=== PATIENT | female | born 1940 | race Caucasian/White ===

== ENCOUNTER 2020-08-27 21:26 | Inpatient (IN) | payer MEDICARE, OTHER ==
--- NOTE | 2020-08-27 22:18 | RAD ---
Exam: Chest one view HISTORY:Preoperative exam. Trauma. Comparison: 06/18/2016 FINDINGS: Cardiac silhouette:Cardiomegaly. Aorta: Atherosclerosis Pulmonary vessels: Normal Costophrenic angles: Clear LUNGS: Stable elevation the right hemidiaphragm likely due to diaphragmatic process. Chronic lung par enchymal changes without mass or consolidation. Pneumothorax: None Osseous abnormalities: None IMPRESSION: 1. Cardiomegaly. No radiographic evidence of congestive heart failure. 2. Atherosclerosis.
[2020-08-27 22:35] LABS: #Lymphocytes 1.3 thou/uL (1.20-3.40); #Monocytes 0.5 thou/uL (0.11-0.59); #Neutrophils 7.3 thou/uL (1.40-6.50); %Eosinophils 0.1 % (0.0-10.0); %Lymphocytes 13.9 % (21.0-51.0); %Monocytes 5.9 % (0.0-10.0); %Neutrophils 80.1 % (42.0-75.0); Hemoglobin 11.5 g/dL (12.0-16.0); Mean Corpuscular HGB CONC 30.9 g/dL (32.0-36.0); Mean Corpuscular Hemoglobin 27.9 pg (27.0-31.0); Mean Corpuscular Volume 90.3 fL (78.0-98.0); Mean Platelet Volume 8.4 fL (7.4-10.4); Platelet Count 205 thou/uL (130-400); RBC Distribution Width 14.2 % (11.5-14.5); Red Blood Cell (RBC) Count 4.14 mill/uL (4.20-5.40); White Blood Cell (WBC) Count 9.1 thou/uL (4.8-10.8)
[2020-08-27 22:44] LABS: INR-International Normal Ratio 1.4; PTT 42.7 sec (22.9-36.1); Prothrombin Time 16.9 sec (12.0-14.7)
[2020-08-27] MEDS ORDERED: Ondansetron PF 4 MG/2 ML Vial IVP PRN (22:53)
[2020-08-27] MEDS ORDERED: Dextrose 5% in Water 1,000 ML IV PRN (22:53)
[2020-08-27] MEDS ORDERED: Morphine 2 MG/ML VIAL SLOW IVP PRN (22:53)
[2020-08-27] MEDS ORDERED: Dextrose 50% Abboject 50 ML SYRINGE SLOW IVP PRN (22:53)
[2020-08-27] MEDS ORDERED: hydrALAZINE 20 MG/ML VIAL SLOW IVP PRN (22:53)
[2020-08-27] MEDS ORDERED: traMADol HCl 50 MG TAB PO PRN (22:56)
[2020-08-27 22:57] LABS: ALT (SGPT) 7 U/L (8-55); AST (SGOT) 22 U/L (5-34); Albumin 2.8 g/dL (3.4-4.8); Alkaline Phosphatase 101 U/L (40-110); Anion Gap 13 mmol/L (10-20); BUN (Urea Nitrogen) 25 mg/dL (9.8-20.1); Bilirubin, Total 0.6 mg/dL (0.2-1.2); CK (CPK) 122 U/L (29-168); Calc. Creatinine Clearance 0 mL/min (70-130); Calcium 8.5 mg/dL (7.8-10.44); Carbon Dioxide 25 mmol/L (23-31); Chloride 96 mmol/L (98-107); Globulin 4.5 g/dL (2.4-3.5); Glucose 138 mg/dL (83-110); Magnesium 1.6 mg/dL (1.6-2.6); Phosphorus 3.7 mg/dL (2.3-4.7); Potassium 3.7 mmol/L (3.5-5.1); Protein, Total 7.3 g/dL (6.0-8.3); Sodium 130 mmol/L (136-145)
[2020-08-27] MEDS ORDERED: Morphine 4 MG/ML VIAL ONE (23:00)
[2020-08-27 23:47] LABS: Bacteria/HPF 4+ HPF (None Seen); Bilirubin Negative (Negative); Blood, Urine 3+ (Negative); Clarity Extra Turbid (Clear); Glucose, Urine (Dipstick) Normal (Negative); Ketone, Urine Negative (Negative); Leukocyte 500 Leu/uL (Negative); Nitrite Negative (Negative); Protein, Urine (Dipstick) 30 mg/dL (Neg-Trace); RBC/HPF 21-50 HPF (0-3); Specific Gravity, Urine 1.017 (1.002-1.036); Squamous Epithelial 21-50 HPF (0-3); Urobilinogen Normal mg/dL (Less than 2); WBC/HPF Greater than 50 HPF (0-3); pH, Urine 5.5 (5.0-9.0)
--- NOTE | 2020-08-27 23:51 | RAD ---
Exam:Right foot 3 views HISTORY: Pain. Trauma. COMPARISON: None FINDINGS: Diffuse bone demineralization. There are erosive changes involving first metatarsal phalang eal joint space, the middle and distal phalanx of the second digit, distal phalanx of the third digit and metatarsal head of the fourth digit. There appear to be chronic changes involving the first and fourth metatarsal phalangeal joint space. Lisfranc alignment appears to be displaced with possible pulmonary lateral divergence. Better interrogation with CT is recommended. There is irregula rity involving the middle phalanx of the third digit. IMPRESSION: 1. Possible disruption of the Lisfranc ligament with homolateral divergence. Underlying fractures can not be excluded. 2. Multilevel erosive changes which may represent osteomyelitis. Consider CT.
--- NOTE | 2020-08-27 23:53 | RAD ---
Exam:Left foot 3 views HISTORY: Pain and trauma. COMPARISON: 12/23/2019 FINDINGS: Progression of degenerative changes throughout the left foot. There are erosive and destruc tive changes involving the first through third metatarsal phalangeal joint space. Lisfranc alignment appears to be maintained. There is diffuse bone demineralization. Extensive atherosclerosis . IMPRESSION: 1. Stable degenerative changes/erosive changes of the left foot. 2. Diffuse bony mineralization. 3. No radiographic evidence of fracture. There is pain or point tenderness, consider further evaluati on with CT.
[2020-08-27] MEDS ORDERED: Sodium Chloride 0.9% 1,000 ML IV SCH (23:59)
[2020-08-27] MEDS ORDERED: Magnesium 2 GM/50 ML 2 GM in Premix Bag 1 BAG IVPB SCH (23:59)
[2020-08-28] MEDS ORDERED: Potassium Phosphate 15 MMOL in Sodium Chloride 0.9% 250 ML 250 ML IVPB SCH (01:00)
--- NOTE | 2020-08-28 01:15 | HP ---
TRAUMA SURGEON: Dr. Carolina. CONSULTING PHYSICIAN: Dr. Dhaliwal. HISTORY OF PRESENT ILLNESS: The patient is an 80-year-old female presented to the emergency department after a mechanical fall at home. The patient reports yesterday evening she was in her garage and got hung up on something while using her walker. She subsequently fell. She did have some left-sided thigh pain. EMS was called to help her into bed. She refused transport at that time. However, today the patient was not able to get up out of bed and ambulate and was having severe pain, so she was brought to the ER at [place]. Upon evaluation, she was found to have a left proximal femur fracture. Trauma was called to evaluate the patient. At the time of my evaluation, the patient complained of left-sided thigh pain. The patient denies syncope, loss of consciousness, and hitting her head. She does take Pradaxa as part of her medications. She denies numbness and tingling in her bilateral upper and lower extremities, neck pain, back pain, nausea, vomiting, diarrhea, cough, chest pain, or shortness of breath. She does report that the toes on her bilateral feet are tender since the fall. REVIEW OF SYSTEMS: All additional 10-point review of systems negative except as indicated above. PAST MEDICAL HISTORY: Hypertension, atrial fibrillation, pulmonary hypertension, GERD, breast cancer, rheumatoid arthritis, hypothyroidism, and urinary incontinence. The patient also reports she has a leaky valve in her heart, but could not tell me which exact valve. She also currently has a flare of shingles. PAST SURGICAL HISTORY: Right lumpectomy, hysterectomy, carpal tunnel surgery x2, appendectomy, and spinal injections. SOCIAL HISTORY: The patient lives at home with her . She has a walker to get around. She denies tobacco, drug, or alcohol use. MEDICATIONS: Include; 1. Benazepril. 2. Pradaxa. 3. Hydralazine. 4. Fluticasone. 5. Prilosec. 6. Hydrochlorothiazide. 7. Euthyrox. ALLERGIES: NO KNOWN DRUG ALLERGIES. PHYSICAL EXAMINATION: VITAL SIGNS: Temperature 97.8, pulse 72, respirations 16, oxygen saturation 100% on room air, and blood pressure 199/95. PRIMARY SURVEY: Airway intact. Adequate breath sounds bilaterally. 2+ pulses in the bilateral radials, femorals, and DPs. GCS 15. Gross motor and sensation intact. No lacerations, bruising, or external bleeding. SECONDARY SURVEY: HEAD: Normocephalic, no signs of trauma. EYES: No signs of trauma. Pupils 3-2, equal, round, and reactive to light bilaterally. ENT: No signs of trauma. C-SPINE: No step-offs or deformities, nontender. C-collar not in place. CHEST: Nontender. No crepitus. No abrasions or ecchymosis noted. Equal chest movement. ABDOMEN: Soft, nontender, and nondistended. The patient has a rash on her right lateral side extending to her back from shingles. PELVIS: Stable to palpation, nontender. No abrasions or ecchymosis noted. RECTAL: Deferred. GENITOURINARY: Deferred. EXTREMITIES: The patient has pain and tenderness over the left thigh. No abrasions or ecchymosis noted. 2+ pulses in bilateral radials, femorals, and DPs. The patient has tenderness to the toes of bilateral feet. BACK/SPINE: No step-offs, deformities, or tenderness to palpation of the thoracic or lumbar spine. No abrasions or ecchymosis noted. The patient has a shingles outbreak that wraps around her back to her right abdomen. NEUROLOGIC: 5/5 strength in bilateral supervisor white sugar, plantar flexion, and dorsiflexion. Gross normal sensation x4 extremities. LABORATORY FINDINGS: White count 9.1, hemoglobin 11.5, hematocrit 37.4, and platelets 205. INR 1.4. Sodium 130, potassium 3.7, chloride 96, bicarb 25, BUN 25, creatinine 1.54, glucose 138, phosphorus 3.7, and magnesium 1.6. Total bilirubin 0.6, AST 22, ALT 7, and alkaline phosphatase 101. UA is contaminated and will be re-sent. X-ray of the left hip demonstrates displaced left proximal femoral fracture. X-ray of the left knee demonstrates no evidence for acute osseous abnormalities. If there is a persistent clinical concern, conservative management and followup imaging are advised. Chest x-ray demonstrates cardiomegaly. No radiographic evidence of congestive heart failure, atherosclerosis. X-ray of the left foot demonstrates stable degenerative changes of the left foot. Diffuse body demineralization. No radiographic evidence of fracture. There is pain or point tenderness. Consider further evaluation with CT. X-ray of the right foot demonstrates possible destruction of the Lisfranc ligament with homolateral divergence underlying fracture cannot be excluded. Multilevel erosion changes which may represent osteomyelitis consider CT. ASSESSMENT: 1. Status post mechanical fall from standing. 2. Left proximal femur fracture. 3. Acute kidney injury. 4. History of hypertension, heart valve insufficiency, atrial fibrillation, pulmonary hypertension, gastroesophageal reflux disease, breast cancer, rheumatoid arthritis, hypothyroidism, incontinence, and recent diagnosis of shingles. PLAN: The patient will be admitted to the Trauma Service. She will go to the regular surgical nursing floor. She has a heart healthy diet and will be n.p.o. at midnight. Orthopedic Surgery has been consulted and they plan to take the patient to the OR tomorrow. We will provide her with both p.o. and IV pain medications. We will also keep in mind to monitor the patient's pain while she has the shingles flare. We will ask the opinion of Orthopedic Surgery to evaluate x-rays of her right foot to determine if further CT imaging is recommended based on all of the findings reported. Postoperatively, the patient will likely need placement in acute rehab facility. This patient was discussed with Dr. Carolina before this dictation. Job ID: [id number]
[2020-08-28] MEDS: Acetaminophen 500 MG TAB PO SCH ×4 (01:20→17:57)
[2020-08-28] MEDS: Cyclobenzaprine 10 MG TAB PO PRN (01:59)
[2020-08-28 02:55] LABS: Bacteria/HPF 4+ HPF (None Seen); Bilirubin Negative (Negative); Blood, Urine 3+ (Negative); Clarity Extra Turbid (Clear); Glucose, Urine (Dipstick) Normal (Negative); Ketone, Urine Negative (Negative); Leukocyte 500 Leu/uL (Negative); Nitrite 2+ (Negative); Protein, Urine (Dipstick) 100 mg/dL (Neg-Trace); RBC/HPF Greater than 50 HPF (0-3); Specific Gravity, Urine 1.023 (1.002-1.036); Urobilinogen Normal mg/dL (Less than 2); WBC/HPF Greater than 50 HPF (0-3); pH, Urine 5.5 (5.0-9.0)
[2020-08-28 03:19] VITALS: BMI 34.0
[2020-08-28 06:29] LABS: Hemoglobin 11.2 g/dL (12.0-16.0); Mean Corpuscular HGB CONC 31.6 g/dL (32.0-36.0); Mean Corpuscular Hemoglobin 28.5 pg (27.0-31.0); Mean Corpuscular Volume 90.3 fL (78.0-98.0); Mean Platelet Volume 8.3 fL (7.4-10.4); Platelet Count 203 thou/uL (130-400); RBC Distribution Width 14.2 % (11.5-14.5); Red Blood Cell (RBC) Count 3.94 mill/uL (4.20-5.40); White Blood Cell (WBC) Count 7.8 thou/uL (4.8-10.8)
[2020-08-28 06:33] LABS: Anion Gap 13 mmol/L (10-20); BUN (Urea Nitrogen) 27 mg/dL (9.8-20.1); Calc. Creatinine Clearance 40 mL/min (70-130); Calcium 8.2 mg/dL (7.8-10.44); Carbon Dioxide 26 mmol/L (23-31); Chloride 96 mmol/L (98-107); Glucose 106 mg/dL (83-110); Magnesium 2.4 mg/dL (1.6-2.6); Phosphorus 3.7 mg/dL (2.3-4.7); Potassium 3.3 mmol/L (3.5-5.1); Sodium 132 mmol/L (136-145)
[2020-08-28] MEDS ORDERED: Potassium Chloride 40 MEQ in Premix Bag 1 BAG IVPB SCH (07:00)
[2020-08-28 07:43] LABS: Band 12 % (5-11); Eosinophils 1 % (0-10); Lymphocytes 17 % (21-51); MDiff Complete? YES; Monocytes 5 % (0-10); Neutrophil 64 % (42-75); Platelet Morphology Comment Appears Adequate; Polychromasia SLIGHT = 2-3 cells (100X) (0-2/hpf); Reactive Lymphocytes 1 % (0-10)
[2020-08-28] MEDS: Famotidine 20 MG TAB PO SCH (09:04)
[2020-08-28] MEDS: Senokot S 8.6-50 MG TAB PO SCH ×2 (09:04→20:53)
[2020-08-28] MEDS: Polyethylene Glycol 3350 17 GM Packet PO SCH ×2 (09:05→09:09)
[2020-08-28] MEDS ORDERED: Dexamethasone 20 MG/5 ML VIAL ONE (09:07)
[2020-08-28] MEDS ORDERED: ePHEDrine 50 MG/ML VIAL ONE (09:07)
[2020-08-28] MEDS ORDERED: Ondansetron PF 4 MG/2 ML Vial ONE ×2 (09:07→14:14)
[2020-08-28] MEDS: Lisinopril 20 MG TAB PO SCH (09:09)
[2020-08-28] MEDS: hydrALAZINE 25 MG TAB PO SCH ×3 (09:09→20:54)
[2020-08-28] MEDS: cefTRIAXone\\ROCEPHIN 1 GM in Sodium Chloride 0.9% 100 ML IVPB SCH (09:09)
--- NOTE | 2020-08-28 09:21 | CON ---
DATE OF CONSULTATION: HISTORY OF PRESENT ILLNESS: We were asked by Trauma to see the patient. The patient was at home yesterday. She was going out to her garage with her 3-wheeled walker. She says her garage was a little bit in disarray and she caught her foot and fell. She states she dragged her right foot under her and that is quite painful and also has some left hip and groin pain. The patient currently is in Crowley's traction and is comfortable. She denies any other injuries except the right foot and left hip. She resides at home near [place] on [address] [place] with her who has some vision and mentation issues, but he is still able to get around quite a bit. She is concerned about him, but the neighbors stated they will take a look at him and check in on to make sure he is okay. Her daughter lives in [place], so if rehab is to be involved, she would like to go somewhere near there. Other than the pain stated above, she denies any numbness and tingling to her bilateral lower extremities but has pain with moving both. PAST MEDICAL HISTORY: High blood pressure, AFib, pulmonary hypertension, GERD, breast cancer, rheumatoid arthritis, hypothyroidism, urinary incontinence, and has some apparent leaky valve in her heart and struggling with shingles currently. PAST SURGICAL HISTORY: Right lumpectomy, hysterectomy, carpal tunnel x2, appendectomy, spinal injections, and she has had some form of right foot fusion pinning in the past for toes overlapping. SOCIAL HISTORY: Lives at home on [address] [place] with her who has multiple health issues also. No alcohol, nicotine, or drug use. CURRENT MEDICATIONS: 1. Benazepril. 2. Pradaxa, last dose on Wednesday morning. 3. Hydralazine. 4. Fluticasone. 5. Prilosec. 6. Hydrochlorothiazide. 7. . ALLERGIES: NONE. FAMILY HISTORY: For this event is noncontributory. REVIEW OF SYSTEMS: Right foot, left hip pain. Otherwise, the patient is comfortable and in no acute distress. No other positive review of systems currently. PHYSICAL EXAMINATION: GENERAL: Well-nourished, well-developed female, very pleasant, currently in no acute distress as long as I do not move her. Speech clear, answering questions appropriately, is alert and oriented x3. HEENT: Scalp atraumatic. Face symmetric. Tongue midline. NECK: Supple. Trachea midline. EXTREMITIES: Upper extremities; equal size, shape, and symmetry. Normal bulk and tone. Movements are equal as are sensation. She does have some various bruising to both arms. Bilateral lower extremities; equal size, shape, symmetry, bulk, and tone. Left lower extremity is in Crowley's traction. Right lower extremity; toes are painful with movement, but have good sensation as does the left lower extremity. She does have some bruising to the dorsal aspect of the foot just inferior to the digits and the digits are all painful with moving. DP and PT pulses are intact. RESPIRATORY: Respirations 16. No acute distress. PELVIS: No pain with rocking. ASSESSMENT: 1. Multiple health issues. 2. Left hip fracture, nondisplaced. 3. Possible Lisfranc disruption with significant rheumatoid arthritis to that foot with lots of joint erosions and degenerative changes. PLAN: I spoke with the patient regarding the hip. We would like to do a dynamic hip screw with derotational screw, and I explained to the patient the procedure and went over the risks and benefits. Her questions and concerns at this current time were answered, and she is amenable to go forth with surgery. As for her right foot, due to her extensive arthritis, I will go over these films with Dr. Dhaliwal. I let the patient know she may need some further imaging studies which she understands. She also states she has a plethora of various orthotic shoes at home, she has worn over the past. Once Trauma allows us to do surgery, we will get her set up and again her last Pradaxa dose was Wednesday. Currently, she is n.p.o. Job ID: [id number]
[2020-08-28 09:35] LABS: SARS-CoV-2 MS2 Positive; SARS-CoV-2 N Gene Negative; SARS-CoV-2 S Gene Negative; SARS-CoV-2 by NAA Not Detected (NotDetected); SARS-CoV-2 orf1ab Negative
[2020-08-28] MEDS: NS 0.9% w/ 20 MEQ KCL 1,000 ML IV SCH ×2 (09:37→23:35)
--- NOTE | 2020-08-28 10:54 | CT ---
EXAM: CT left ankle and foot PROVIDED CLINICAL HISTORY: Pain status post injury COMPARISON: None FINDINGS: There is diffuse regional osteopenia, limiting the sensitivity of CT. There are extensive mid foot de generative changes with subcortical cystlike changes, most conspicuously involving the navicular-cuneiform articulation. There is no evidence for fracture or dislocation. There is noncircu mscribed fluid density within the subcutaneous adipose layer at the lateral aspect of the ankle. Vascular calcifications are seen. No regional joint effusion is evident. IMPRESSION: No definite evidence for fracture.
--- NOTE | 2020-08-28 10:57 | CT ---
EXAM: CT right ankle and foot PROVIDED CLINICAL HISTORY: Pain status post injury COMPARISON: None FINDINGS: There is diffuse regional osteopenia, limiting CT sensitivity for fracture. There is no evidence for fracture. There is no evidence for dislocation. Alignment at the Lisfranc joint appears normal. There is prominent regional vascular calcification. There is no evidence for joint effusion. No mabel rning lytic or blastic osseous lesions are evident. IMPRESSION: No definite evidence for fracture.
[2020-08-28] MEDS: Potassium Chloride 20 MEQ in Premix Bag 1 BAG IVPB SCH ×2 (11:29→12:13)
[2020-08-28] MEDS ORDERED: Iopamidol-370 76% 500 ML 1 ML ONE (13:14)
--- NOTE | 2020-08-28 14:55 | PQF ---
CLINICAL DOCUMENTATION CLARIFICATION FORM: Dear SMOOTH Barclay/WILI DREW PA-C Date: 08-28-20 Please exercise your independent, professional judgment in responding to the clarification form. Clinical indicators are provided on the bottom of this form for your review. Please check appropriate box(es): [ X ] UTI [ ] Contaminated urine specimen without UTI [ ] Other diagnosis [ ] Unable to determine In addition, please specify: Present on Admission (POA): [ X ] Yes [ ] No [ ] Unable to determine For continuity of documentation, please document condition throughout progress notes and discharge summary. Thank You. To be completed by CDI/Coding staff for physician review: CLINICAL INDICATORS - SIGNS / SYMPTOMS / LABS / RESULTS AND LOCATION IN MR: URINE 08-28-20: URINE CLARITY: EXTRA TURBID A URINE PROTEIN: 100 A URINE BLOOD: 3+ URINE NITRATE: 2+ A UR LEUKOCYTE ESTERASE: 500 A URINE WBC: GREATER THAN 50 A URINE BACTERIA: 4+ A RISK FACTORS / RESULTS AND LOCATION IN MR: H&P: 08-28-20: S/P MECH FALL, UNABLE TO GET OUT OF BED, HX OF URINARY INCONTINENCE, HAS A FLARE OF SHINGLES, LIVES AT HOME, USES WALKER TO GET AROUND TREATMENT / RESULTS AND LOCATION IN MR: URINE COLLECTION 08-27-20 AND 08-28-20 MAR: 08-28-20: IVF NS WITH 20 MEQ KCL, ROCEPHIN IV CDS Signature: Yuki Oconnor Phone #: [phone] Date:08-28-20 This is a permanent part of the Medical Record [facility]
--- NOTE | 2020-08-28 15:08 | PQF ---
CLINICAL DOCUMENTATION CLARIFICATION FORM: Dear Dr. HERNAN ZUÑIGA PA-C/WILI DREW PA-C Date / Time: 08-28-20 Please exercise your independent, professional judgment in responding to the clarification form. Clinical indicators are provided on the bottom of this form for your review. Please check appropriate box(es): [ X ] Hyponatremia please specify etiology, if known [ ] Insignificant Lab Values [ ] Other diagnosis [ ] Unable to determine In addition, please specify: Present on Admission (POA): [ X ] Yes [ ] No [ ] Unable to determine For continuity of documentation, please document condition throughout progress notes and discharge summary. Thank You. To be completed by CDI/Coding staff for physician review: CLINICAL INDICATORS - SIGNS / SYMPTOMS / LABS / RESULTS AND LOCATION IN EMR: SODIUM: 08-27-20: 130 08-28-20: 132 RISK FACTORS / RESULTS AND LOCATION IN EMR: H&P 08-27-20: HX HTN, A FIB, PULMONARY HTN, GERD, BREAST CANCER, RA, HYPOTHYROIDISM, URINARY INCONTINENCE, CURRENTLY HAS FLARE OF SHINGLES ; ASSESSMENT: S/P MECH FALL, L PROXIMAL FEMUR FRACTURE, ACUTE KIDNEY FAILURE TREATMENTS / RESULTS AND LOCATION IN EMR: MAR: 08-28-20: NS WITH 20MEQ KCL IVF CDS Signature: Yuki Oconnor Phone #: [phone] Date: 08-28-20 This is a permanent part of the Medical Record [facility]
--- NOTE | 2020-08-28 15:09 | RAD ---
EXAM: XR Hip Lt 2-3 View PROVIDED CLINICAL HISTORY: ORIF COMPARISON: None FINDINGS: Spot fluoroscopic frontal, oblique and lateral views of the left hip demonstrate interval side plate and dynamic hip screw fixation of left proximal femoral fracture. IMPRESSION: As above.
[2020-08-28] MEDS ORDERED: Promethazine HCl 25 MG/ML VIAL SLOW IVP PRN (15:23)
[2020-08-28] MEDS ORDERED: Promethazine HCl 25 MG/ML VIAL IM PRN (15:23)
[2020-08-28] MEDS ORDERED: Ondansetron HCl/PF 4 MG/2 ML Vial IVP PRN (15:23)
--- NOTE | 2020-08-28 16:44 | CT ---
CT head noncontrast HISTORY: Postop. Expressive aphasia. COMPARISON: 09/30/2013. FINDINGS: There is no evidence of acute intracranial hemorrhage or infarct. 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 Additional chronic ischemic small vessel disease throughout the periven tricular white matter of each cerebral hemisphere has progressed somewhat. Diffuse cortical atrophy. There is no mass effect or shift of midline structures. Calcification within the arterial structures of the brain base. Mucous and fluid within the maxillary , sphenoid, and frontal sinuses. Chronic appearing mucosal thickening of the left mastoid air cells. IMPRESSION : Chronic-type findings. No acute intracranial abnormalities are demonstrated. CT arteriogram is pending.
--- NOTE | 2020-08-28 17:04 | CT ---
EXAM: CT angiogram great vessels neck with IV contrast and three-dimensional reconstructions CT angiogram brain with IV contrast and three-dimensional reconstructions PROVIDED CLINICAL HISTORY: Postop expressive aphasia COMPARISON: None FINDINGS: There is a normal three-vessel configuration of the great vessels at the arch. There is conspicuous calcified atherosclerotic plaque involving the terminal aspects of each common c arotid artery. There is high-grade calcified stenosis/near occlusion involving the left distal common carotid artery just proximal to the bifurcation. There is less than 50% stenosis involving the right common carotid artery stenosis. The common carotid, internal carotid, subclavian and vertebral arteries demonstrate no additional evidence for significant stenosis. There is no evidence for focal vessel stenosis, branch occlusion or aneurysm involving the intracrani al circulation. There is conspicuous atherosclerotic vascular calcification involving the cavernous portions of both internal carotid arteries. Conspicuous vascular calcification is seen involving the intracranial aspects of both vertebral arteries. IMPRESSION: 1. No evidence for high-grade focal vessel stenosis, branch occlusion or aneurysm involving the circl e of [place]. 2. High-grade calcified stenosis/near occlusion involving the distal left common carotid artery. 3. Findings communicated to the ordering clinician via telephone 4:59 PM 08/28/2020.
--- NOTE | 2020-08-28 19:04 | PRG ---
DATE OF SERVICE: 08/28/2020 SUBJECTIVE: The patient is status post ground level fall, which she sustained a nondisplaced left hip fracture. She was admitted early this morning. She underwent evaluation and examination, and after interview, was noted to have taken her Pradaxa last on Wednesday morning and Orthopedics will proceed with her surgical procedure today. The patient had no issues overnight. She has been n.p.o. since her admission. Her pain is controlled. She has a Bush catheter placed. PHYSICAL EXAMINATION: VITAL SIGNS: Temperature 97.7, heart rate 72, blood pressure 127/72, respirations 16, and oxygen saturation 100% on room air. GENERAL: The patient is resting comfortably in bed. She is awake, conversant, appropriate. Beatty Coma Scale is 15. HEENT: Unremarkable. LUNGS: Clear to auscultation bilaterally. HEART: Regular rate and rhythm. ABDOMEN: Soft, flat, nontender with active bowel sounds. EXTREMITIES: Neurovascularly intact x4. LABORATORY FINDINGS: White blood cell count 7.8, hemoglobin 11.2, hematocrit 35.6, platelets 203. Sodium 132, potassium 3.3, chloride 96, CO2 of 26, BUN 27, creatinine 1.38, glucose 106, magnesium 2.4, phosphorus 3.7. There are no radiographs reviewed this morning. ASSESSMENT AND PLAN: 1. Status post fall from standing. 2. Left proximal femur fracture. 3. Addkd-lm-lsmpsir kidney injury. 4. Herpes zoster flare. 5. History of hypertension, heart valve insufficiency, atrial fibrillation, pulmonary hypertension, gastroesophageal reflux disease, breast cancer, rheumatoid arthritis, hypothyroidism, and incontinence. The patient was noted postoperatively to have expressive aphasia, at which time she underwent emergent CT and CTA, that were unremarkable prior to the patient getting her MRI. The patient started to verbalize and by the time she reached the surgical floor, she had returned to baseline. We will continue to monitor this. PLAN: Continue supportive care. Encourage physical and occupational therapy and discuss placement. The patient was evaluated with Dr. Hunter this morning during rounds. Job ID: [id number]
[2020-08-28] MEDS: Gabapentin 100 MG CAP PO SCH (20:53)
[2020-08-28] MEDS: rOPINIRole HCl 0.25 MG TAB PO SCH (22:28)
[2020-08-29] MEDS: Acetaminophen 500 MG TAB PO SCH ×4 (00:11→18:05)
[2020-08-29 05:50] LABS: Anion Gap 15 mmol/L (10-20); BUN (Urea Nitrogen) 24 mg/dL (9.8-20.1); Calc. Creatinine Clearance 51 mL/min (70-130); Calcium 7.9 mg/dL (7.8-10.44); Carbon Dioxide 20 mmol/L (23-31); Chloride 102 mmol/L (98-107); Glucose 94 mg/dL (83-110); Magnesium 1.9 mg/dL (1.6-2.6); Phosphorus 3.4 mg/dL (2.3-4.7); Potassium 4.1 mmol/L (3.5-5.1); Sodium 133 mmol/L (136-145)
[2020-08-29 06:38] LABS: Band 10 % (5-11); Hemoglobin 10.7 g/dL (12.0-16.0); Lymphocytes 8 % (21-51); MDiff Complete? YES; Mean Corpuscular HGB CONC 31.3 g/dL (32.0-36.0); Mean Corpuscular Hemoglobin 28.7 pg (27.0-31.0); Mean Corpuscular Volume 91.5 fL (78.0-98.0); Mean Platelet Volume 9.6 fL (7.4-10.4); Monocytes 5 % (0-10); Neutrophil 77 % (42-75); Platelet Count 129 thou/uL (130-400); RBC Distribution Width 14.3 % (11.5-14.5); Red Blood Cell (RBC) Count 3.73 mill/uL (4.20-5.40); Vacuoles SLIGHT; White Blood Cell (WBC) Count 10.1 thou/uL (4.8-10.8)
--- NOTE | 2020-08-29 07:33 | OP ---
DATE OF PROCEDURE: 08/28/2020 PREOPERATIVE DIAGNOSIS: Left intertrochanteric femur fracture. POSTOPERATIVE DIAGNOSIS: Left intertrochanteric femur fracture. SURGICAL PROCEDURE: Open reduction and internal fixation of left intertrochanteric femur fracture. ANESTHESIA: General. READINESS PARAPROFESSIONAL: Frances. ESTIMATED BLOOD LOSS: 150 mL. IMPLANTS: DHS 135-degree 3-hole sideplate with 85-mm hip screw. COMPLICATIONS: None. DRAINS: None. SPECIMEN: None. OUTCOME: Satisfactory. INDICATIONS FOR PROCEDURE: Ms. West is an 80-year-old lady status post ground level fall at home sustaining a left intertrochanteric femur fracture with displacement. After discussion with the patient including risks and benefits, we decided to proceed with open reduction and internal fixation with stabilization utilizing a DHS device. Informed consent has been obtained. I believe all questions have been answered. DESCRIPTION OF PROCEDURE: The patient was brought to the operating room and a time-out performed followed by induction of general anesthesia. Next, the patient was positioned supine on the fracture table with the injured extremity held in longitudinal traction and the well-leg held in extension at the hip to allow for AP and lateral imaging of the left hip. Next, a sterile prep and drape were performed on the left lateral thigh. Using C-arm for localization, an incision was made over the lateral thigh. After skin was sharply incised, dissection was carried through the subcutaneous fat down to the level of the fascia jonny. This structure was incised in line with the skin incision and reflected anteriorly and posteriorly revealing the fascia of the vastus lateralis. This fascia was then incised in line with the skin incision, then the muscle belly reflected anteriorly by my assistant at surgery gaining access to the lateral cortex of the femur. Next, with 135-degree jig, a threaded guidewire was passed from the lateral cortex of the femur into the femoral neck up into the femoral head while my assistant at surgery maintained reduction of the fracture. Once appropriately positioned, measurement was taken off this guidewire for reamer depth as well as screw length. Next, the step reamer was passed over the guidewire for preparing the neck and head to accept the hip screw. This was followed by insertion of 85 mm hip screw with a 3-hole sideplate into the wound, passing it over the guidewire, delivering the screw up the femoral neck into the femoral head. Once fully delivered, the plate was then placed against the lateral cortex of the femur. The jig and guidewire were then removed and a total of three 4.5 mm screws were passed through the plate into the femur distal to the fracture, securing the DHS device to the femur. At the completion of this, AP and lateral C-arm images were obtained. There was found to be just a slight rotational deformity of the fracture but felt to be acceptable. At this point, the wound was irrigated with bulb syringe, then closed in layers with #1 Vicryl for the fascia jonny, followed by 0 Vicryl for Sravan fascia, 2-0 Vicryl subcutaneously, and black for the skin. Xeroform gauze and tape dressing were applied to the lateral thigh, and then, the patient was transferred to recovery room in stable condition. There were no complications, and she tolerated the procedure well. Job ID: [id number] [facility]
[2020-08-29] MEDS: cefTRIAXone\\ROCEPHIN 1 GM in Sodium Chloride 0.9% 100 ML IVPB SCH (08:22)
[2020-08-29] MEDS: Lisinopril 20 MG TAB PO SCH (08:22)
[2020-08-29] MEDS: Famotidine 20 MG TAB PO SCH (08:22)
[2020-08-29] MEDS: Senokot S 8.6-50 MG TAB PO SCH ×2 (08:22→22:09)
[2020-08-29] MEDS: Polyethylene Glycol 3350 17 GM Packet PO SCH (08:22)
[2020-08-29] MEDS: hydrALAZINE 25 MG TAB PO SCH ×3 (08:23→22:08)
[2020-08-29] MEDS: Gabapentin 100 MG CAP PO SCH ×3 (08:23→22:06)
--- NOTE | 2020-08-29 10:52 | CT ---
EXAM: CT angiogram great vessels neck with IV contrast and three-dimensional reconstructions CT angiogram brain with IV contrast and three-dimensional reconstructions PROVIDED CLINICAL HISTORY: Postop expressive aphasia COMPARISON: None FINDINGS: There is a normal three-vessel configuration of the great vessels at the arch. There is conspicuous calcified atherosclerotic plaque involving the terminal aspects of each common c arotid artery. There is high-grade calcified stenosis/near occlusion involving the left distal common carotid artery just proximal to the bifurcation. There is less than 50% stenosis involving the right common carotid artery stenosis. The common carotid, internal carotid, subclavian and vertebral arteries demonstrate no additional evidence for significant stenosis. There is no evidence for focal vessel stenosis, branch occlusion or aneurysm involving the intracrani al circulation. There is conspicuous atherosclerotic vascular calcification involving the cavernous portions of both internal carotid arteries. Conspicuous vascular calcification is seen involving the intracranial aspects of both vertebral arteries. IMPRESSION: 1. No evidence for high-grade focal vessel stenosis, branch occlusion or aneurysm involving the circl e of [place]. 2. High-grade calcified stenosis/near occlusion involving the distal left common carotid artery. 3. Findings communicated to the ordering clinician via telephone 4:59 PM 08/28/2020. Transcribed Date/Time: 08/29/2020 10:52 AM
[2020-08-29] MEDS: NS 0.9% w/ 20 MEQ KCL 1,000 ML IV SCH ×2 (11:07→22:08)
--- NOTE | 2020-08-29 15:47 | PRG ---
DATE OF SERVICE: 08/29/2020 SUBJECTIVE: The patient is hospital day 3, postoperative day 2, status post ground level fall which she sustained a left proximal femur fracture, which she underwent orthopedic procedure yesterday, specifically open reduction and internal fixation of left intertrochanteric femur fracture. Postoperatively, the patient was noted to have some expressive aphasia, though had resolved within an hour. The patient reports that it was due to her having a dry mouth and "nothing to say." She did undergo a CT evaluation that was unremarkable. She has since remained at her normal neurologic status. Overnight, she had no issues. Her pain was controlled and she was tolerating a diet. She was going to work with Physical and Occupational Therapy today. PHYSICAL EXAMINATION: VITAL SIGNS: Temperature 97.6, heart rate 66, blood pressure 152/82, respirations 18, oxygen saturation 95% on room air. GENERAL: The patient is resting comfortably in bed. She is awake, alert, and oriented. Yovani Coma Scale is 15. HEENT: Unremarkable. LUNGS: Clear to auscultation bilaterally. HEART: Regular rate and rhythm. ABDOMEN: Soft, nontender with active bowel sounds. EXTREMITIES: Neurovascularly intact x4. The patient reports that her herpes zoster flare is less painful today. LABORATORY FINDINGS: White blood cell count 10.1, hemoglobin 10.7, hematocrit 34.1, platelets 129. Sodium 133, potassium 4.1, chloride 102, CO2 of 20, BUN 24, creatinine 1.08, magnesium 1.9, phosphorus 3.4. IMAGING DATA: There are no radiographs reviewed this morning. ASSESSMENT: 1. Status post mechanical fall from standing. 2. Status post open reduction and internal fixation of left proximal femur fracture. 3. Acute on chronic kidney injury, improved. 4. Herpes zoster flare. 5. History of multiple comorbidities. PLAN: Continue encouraging Physical and Occupational Therapy and await placement decision. The patient will begin chemical VTE prophylaxis in the morning. The patient was evaluated this morning with Dr. Hunter. Job ID: [id number]
[2020-08-29] MEDS: rOPINIRole HCl 0.25 MG TAB PO SCH (18:05)
[2020-08-29] MEDS: traMADol HCl 50 MG TAB PO PRN (22:08)
[2020-08-30] MEDS: Acetaminophen 500 MG TAB PO SCH ×4 (01:14→18:01)
[2020-08-30] MEDS: rOPINIRole HCl 0.25 MG TAB PO SCH ×2 (01:14→18:01)
[2020-08-30 06:18] LABS: Anion Gap 11 mmol/L (10-20); BUN (Urea Nitrogen) 20 mg/dL (9.8-20.1); Calc. Creatinine Clearance 55 mL/min (70-130); Carbon Dioxide 22 mmol/L (23-31); Chloride 106 mmol/L (98-107); Glucose 70 mg/dL (83-110); Magnesium 1.8 mg/dL (1.6-2.6); Phosphorus 2.2 mg/dL (2.3-4.7); Potassium 4.1 mmol/L (3.5-5.1); Sodium 135 mmol/L (136-145)
[2020-08-30 06:19] LABS: Band 1 % (5-11); Hemoglobin 9.4 g/dL (12.0-16.0); Lymphocytes 25 % (21-51); MDiff Complete? YES; Mean Corpuscular HGB CONC 30.4 g/dL (32.0-36.0); Mean Corpuscular Hemoglobin 28.2 pg (27.0-31.0); Mean Corpuscular Volume 92.9 fL (78.0-98.0); Mean Platelet Volume 8.4 fL (7.4-10.4); Monocytes 7 % (0-10); Neutrophil 66 % (42-75); Platelet Count 203 thou/uL (130-400); Platelet Morphology Comment Appears Adequate; RBC Distribution Width 14.3 % (11.5-14.5); Reactive Lymphocytes 1 % (0-10); Red Blood Cell (RBC) Count 3.33 mill/uL (4.20-5.40); White Blood Cell (WBC) Count 8.1 thou/uL (4.8-10.8)
[2020-08-30] MEDS: cefTRIAXone\\ROCEPHIN 1 GM in Sodium Chloride 0.9% 100 ML IVPB SCH (09:20)
[2020-08-30] MEDS: hydrALAZINE 25 MG TAB PO SCH ×3 (09:21→19:53)
[2020-08-30] MEDS: Famotidine 20 MG TAB PO SCH (09:21)
[2020-08-30] MEDS: Lisinopril 20 MG TAB PO SCH (09:21)
[2020-08-30] MEDS: traMADol HCl 50 MG TAB PO PRN ×2 (09:21→19:53)
[2020-08-30] MEDS: Gabapentin 100 MG CAP PO SCH ×3 (09:22→19:53)
[2020-08-30] MEDS: Polyethylene Glycol 3350 17 GM Packet PO SCH (09:22)
[2020-08-30] MEDS: Senokot S 8.6-50 MG TAB PO SCH ×2 (09:23→19:52)
[2020-08-30] MEDS ORDERED: Furosemide 40 MG TAB PO PRN (09:24)
[2020-08-30] MEDS: Dabigatran 150 mg Capsule PO SCH (19:53)
--- NOTE | 2020-08-30 21:34 | PRG ---
DATE OF SERVICE: 08/30/2020 SUBJECTIVE: The patient remains on the surgical floor. She is status post ground level fall, in which she sustained a left proximal femur fracture, for which she has undergone repair of. She is currently awaiting placement. Overnight, she had no issues. She reports her pain is controlled. She is tolerating a diet. PHYSICAL EXAMINATION: VITAL SIGNS: Temperature 97.9, heart rate 70, blood pressure 136/75, respirations 19, oxygen saturations 100% on room air. GENERAL: The patient is resting comfortably in bed. She is awake, conversant, appropriate. Yovani Coma Scale is 15. HEENT: Unremarkable. LUNGS: Clear to auscultation bilaterally. HEART: Regular rate and rhythm. ABDOMEN: Soft, nontender with active bowel sounds. EXTREMITIES: Neurovascularly intact x4. LABORATORY FINDINGS: White blood cell count 8.1, hemoglobin 9.4, hematocrit 30.9, platelets 203. Sodium 135, potassium 4.1, chloride 106, CO2 of 22, BUN 28, creatinine 1.00, glucose 70, magnesium 1.8, phosphorus 2.2. There are no radiographs reviewed this morning. ASSESSMENT AND PLAN: 1. Status post ground level fall. 2. Status post open reduction and internal fixation of left proximal femur fracture. 3. Acute on chronic kidney injury, improved. 4. Herpes zoster flare, improved. Plan will be to continue supportive care, encourage physical and occupational therapy and await final placement decision. The patient was evaluated this morning with Dr. Hunter during rounds. Job ID: [id number]
[2020-08-31] MEDS: Acetaminophen 500 MG TAB PO SCH ×4 (01:06→18:12)
[2020-08-31] MEDS: rOPINIRole HCl 0.25 MG TAB PO SCH ×2 (01:06→19:10)
[2020-08-31] MEDS ORDERED: Levothyroxine Sodium 25 MCG TAB PO SCH (06:00)
[2020-08-31] MEDS ORDERED: predniSONE 20 MG TAB PO SCH (08:00)
[2020-08-31] MEDS ORDERED: Hydrochlorothiazide 25 MG TAB PO SCH (09:00)
[2020-08-31] MEDS: Lisinopril 20 MG TAB PO SCH (09:39)
[2020-08-31] MEDS: Gabapentin 100 MG CAP PO SCH ×2 (09:39→14:15)
[2020-08-31] MEDS: Famotidine 20 MG TAB PO SCH (09:39)
[2020-08-31] MEDS: hydrALAZINE 25 MG TAB PO SCH ×2 (09:39→14:15)
[2020-08-31] MEDS: Dabigatran 150 mg Capsule PO SCH (09:40)
[2020-08-31] MEDS: Polyethylene Glycol 3350 17 GM Packet PO SCH (09:40)
[2020-08-31] MEDS: Senokot S 8.6-50 MG TAB PO SCH (09:40)
[2020-08-31] MEDS: Cyclobenzaprine 10 MG TAB PO PRN (11:50)
[2020-08-31 12:31] VITALS: TEMP 98
[2020-08-31 16:28] VITALS: BP 149/85
[2020-08-31] MEDS: traMADol HCl 50 MG TAB PO PRN (18:12)
== END 2020-08-31 19:05 | DRG 481 ==
LOC: ERS 21:26 → SJJU 22:29
PROVIDERS: ADMIT Specialist; ATTEND Specialist
PROC: 0QS704Z Reposition Left Upper Femur with Internal Fixation Device, Open Approach (ICD-10-PCS; principal; 2020-08-28)
DX: S72.142A Displaced intertrochanteric fracture of left femur, initial encounter for closed fracture (principal); N39.0 Urinary tract infection, site not specified; E87.1 Hypo-osmolality and hyponatremia; Z20.822 Contact with and (suspected) exposure to COVID-19; I48.91 Unspecified atrial fibrillation; K21.9 Gastro-esophageal reflux disease without esophagitis; E03.9 Hypothyroidism, unspecified; W18.30XA Fall on same level, unspecified, initial encounter; M06.9 Rheumatoid arthritis, unspecified; N18.9 Chronic kidney disease, unspecified; I12.9 Hypertensive chronic kidney disease with stage 1 through stage 4 chronic kidney disease, or unspecified chronic kidney disease; B02.9 Zoster without complications; Z85.3 Personal history of malignant neoplasm of breast; Z90.49 Acquired absence of other specified parts of digestive tract; Z90.710 Acquired absence of both cervix and uterus; Z98.42 Cataract extraction status, left eye; Z98.41 Cataract extraction status, right eye; Z79.899 Other long term (current) drug therapy; Z79.890 Hormone replacement therapy; Z79.51 Long term (current) use of inhaled steroids
CPT/HCPCS: 36415; 70450; 70496; 70498; 71045; 76000; 80048; 80053; 81001; 81003; 81015; 82550; 83735; 84100; 85025; 85610; 85730; 87077; 87086; 87186; 87635; 93005; 93010; C1713; G0390; J0360; J0690; J0696; J1100; J2270; J2405; J3475; J3480; J3490; J7050; J7512; Q9967; U0003

== ENCOUNTER 2022-08-26 22:42 | Inpatient (IN) | payer MEDICARE, OTHER ==
[2022-08-27 00:18] LABS: Hemoglobin 7.2 g/dL (12.0-16.0); Mean Corpuscular HGB CONC 31.5 g/dL (32.0-36.0); Mean Corpuscular Hemoglobin 31.4 pg (27.0-31.0); Mean Corpuscular Volume 99.5 fl (78.0-98.0); RBC Distribution Width 19.4 % (11.5-14.5); Red Blood Cell (RBC) Count 2.28 mill/uL (4.20-5.40)
[2022-08-27 00:25] LABS: INR-International Normal Ratio 1.5; Prothrombin Time 18.2 sec (12.0-14.7)
[2022-08-27 00:26] LABS: PTT 43.2 sec (22.9-36.1)
[2022-08-27 00:36] LABS: ALT (SGPT) 9 U/L (8-55); AST (SGOT) 46 U/L (5-34); Albumin 2.3 g/dL (3.4-4.8); Alkaline Phosphatase 64 U/L (40-110); Anion Gap 17 mmol/L (10-20); BUN (Urea Nitrogen) 33 mg/dL (9.8-20.1); CK (CPK) 791 U/L (29-168); Calc. Creatinine Clearance 0 mL/min (70-130); Calcium 8.6 mg/dL (7.8-10.44); Carbon Dioxide 22 mmol/L (23-31); Chloride 109 mmol/L (98-107); Estimated GFR 32; Glucose 104 mg/dL (83-110); Potassium 3.5 mmol/L (3.5-5.1); Protein, Total 5.3 g/dL (5.8-8.1); Sodium 144 mmol/L (136-145)
[2022-08-27 01:00] LABS: CKMB 7.5 ng/mL (0-6.6)
[2022-08-27] MEDS ORDERED: Acetaminophen 325 MG TAB PO PRN (01:15)
[2022-08-27] MEDS ORDERED: Ondansetron ODT 4 MG TAB SL PRN (01:15)
[2022-08-27] MEDS ORDERED: Ondansetron PF 4 MG/2 ML Vial IVP PRN (01:15)
[2022-08-27 01:16] LABS: Anisocytosis SLIGHT = 6-15 cells (100X) (0-5/hpf); Band 3 % (5-11); Differential Comment 2; Eosinophils 2 % (0-10); Lymphocytes 32 % (21-51); MDiff Complete? YES; Macrocytosis SLIGHT = 6-15 cells (100X) (0-5/hpf); Mean Platelet Volume 10.9 fL (7.4-10.4); Monocytes 60 % (0-10); Neutrophil 1 % (42-75); Nucleated RBC 61 % (0); Platelet Count 96 10x3/uL (130-400); Platelet Morphology Comment Appears Decreased; Polychromasia SLIGHT = 2-3 cells (100X) (0-2/hpf)
[2022-08-27 01:18] LABS: White Blood Cell (WBC) Count 1.9 10x3/uL (4.8-10.8)
[2022-08-27] MEDS ORDERED: Acetaminophen 650 MG Suppository PR PRN (01:36)
[2022-08-27] MEDS ORDERED: Sodium Chloride 0.9% 500 ML IV SCH (01:45)
[2022-08-27] MEDS ORDERED: Pantoprazole 40 MG VIAL IVP SCH (01:45)
[2022-08-27] MEDS ORDERED: Pantoprazole 40 MG VIAL ONE ×2 (02:38→09:54)
[2022-08-27] MEDS: Sodium Chloride 0.9% 1,000 ML IV SCH ×2 (02:50→13:22)
[2022-08-27 05:25] LABS: Critical Call Chem Troponin I RESULT DECREASING; Troponin I 1.194 ng/mL (< 0.028)
[2022-08-27 05:26] LABS: Anion Gap 17 mmol/L (10-20); BUN (Urea Nitrogen) 33 mg/dL (9.8-20.1); Calc. Creatinine Clearance 0 mL/min (70-130); Calcium 8.9 mg/dL (7.8-10.44); Carbon Dioxide 19 mmol/L (23-31); Chloride 111 mmol/L (98-107); Estimated GFR 32; Glucose 97 mg/dL (83-110); Potassium 3.2 mmol/L (3.5-5.1); Sodium 144 mmol/L (136-145)
[2022-08-27 06:01] LABS: Anisocytosis SLIGHT = 6-15 cells (100X) (0-5/hpf); Band 1 % (5-11); Eosinophils 1 % (0-10); Hemoglobin 7.2 g/dL (12.0-16.0); Lymphocytes 42 % (21-51); MDiff Complete? YES; Macrocytosis SLIGHT = 6-15 cells (100X) (0-5/hpf); Mean Corpuscular Hemoglobin 31.6 pg (27.0-31.0); Mean Corpuscular Volume 98.9 fl (78.0-98.0); Mean Platelet Volume 10.6 fL (7.4-10.4); Metamyelocyte 1 % (0-0); Monocytes 54 % (0-10); Myelocyte 1 % (0-0); Nucleated RBC 61 % (0); Platelet Count 90 10x3/uL (130-400); Platelet Morphology Comment Appears Decreased; RBC Distribution Width 19.3 % (11.5-14.5); Red Blood Cell (RBC) Count 2.28 mill/uL (4.20-5.40); Schistocytes SLIGHT = 2-5 cells (100X) (0-1/hpf); White Blood Cell (WBC) Count 1.6 10x3/uL (4.8-10.8)
[2022-08-27] MEDS ORDERED: Electrolyte Replacement Protocol 1 EACH FS SCH (07:15)
[2022-08-27] MEDS ORDERED: Cefepime 2 GM VIAL ONE (07:29)
[2022-08-27] MEDS: Cefepime 2 GM in Sodium Chloride 0.9% 100 ML IVPB SCH ×2 (07:58→20:21)
[2022-08-27] MEDS ORDERED: Potassium Chloride 20 MEQ TAB PO SCH (08:00)
[2022-08-27 08:43] LABS: Critical Call Chem Troponin I RESULT DECREASING; Troponin I 1.099 ng/mL (< 0.028)
[2022-08-27] MEDS: VANCOMYCIN 1.25 GM/250 ML IVPB SCH ×2 (08:55→21:28)
[2022-08-27] MEDS ORDERED: Potassium Chloride 20 MEQ/100 ML PREMIX BAG ONE ×2 (09:54→12:05)
[2022-08-27] MEDS: Potassium Chloride 20 MEQ/100 ML PREMIX BAG IVPB SCH ×2 (10:10→12:12)
[2022-08-27] MEDS: Pantoprazole 40 MG VIAL IVP SCH ×2 (10:15→20:21)
[2022-08-27 12:22] LABS: SARS-CoV-2 NAA Rapid Test Not Detected (NotDetected)
[2022-08-27 13:18] VITALS: BP 113/58
[2022-08-27 14:08] LABS: Bilirubin Negative (Negative); Blood, Urine 1+ (Negative); CAUTI Indications for Culture Fever or rigors; Clarity Turbid (Clear); Glucose, Urine (Dipstick) Normal (Negative); Ketone, Urine Trace mg/dL (Negative); Leukocyte Negative Leu/uL (Negative); Nitrite Negative (Negative); Protein, Urine (Dipstick) 50 mg/dL (Neg-Trace); Squamous Epithelial 0-3 HPF (0-3); Urobilinogen 3 mg/dL (Less than 2); pH, Urine 5.5 (5.0-9.0)
[2022-08-27 14:11] LABS: Bacteria/HPF 1+ HPF (None Seen)
[2022-08-27 14:12] LABS: Urine Culture Reflex No No
[2022-08-27 18:14] LABS: Albumin 2.4 g/dL (3.4-4.8); Anion Gap 16 mmol/L (10-20); BUN (Urea Nitrogen) 34 mg/dL (9.8-20.1); BUN/Creatinine Ratio 20.24; CK (CPK) 255 U/L (29-168); Calc. Creatinine Clearance 0 mL/min (70-130); Calcium 9.1 mg/dL (7.8-10.44); Carbon Dioxide 18 mmol/L (23-31); Chloride 114 mmol/L (98-107); Estimated GFR 30; Glucose 99 mg/dL (83-110); Phosphorus 1.6 mg/dL (2.3-4.7); Potassium 3.9 mmol/L (3.5-5.1); Sodium 144 mmol/L (136-145)
[2022-08-27 18:18] LABS: Protein, Urine Random Quant 57 mg/dL (1-14); Sodium, Urine Less than 20 mmol/L (Not Available); Urea Nitrogen, Random Urine 754 mg/dl
[2022-08-27 19:59] VITALS: BMI 26.0
[2022-08-27] MEDS ORDERED: Sodium Bicarbonate 75 MEQ in Sodium Chloride 0.45% 1,000 ML IV SCH (21:00)
[2022-08-27] MEDS ORDERED: Potassium Phosphate 30 MMOL in Sodium Chloride 0.9% 250 ML 250 ML IVPB SCH (21:15)
[2022-08-28 04:37] LABS: Hemoglobin 8.5 g/dL (12.0-16.0); Mean Corpuscular HGB CONC 32.1 g/dL (32.0-36.0); Mean Corpuscular Hemoglobin 31.8 pg (27.0-31.0); Mean Corpuscular Volume 99.1 fl (78.0-98.0); Mean Platelet Volume 10.7 fL (7.4-10.4); Platelet Count 83 10x3/uL (130-400); RBC Distribution Width 18.7 % (11.5-14.5); Red Blood Cell (RBC) Count 2.68 mill/uL (4.20-5.40)
[2022-08-28 04:53] LABS: Anion Gap 19 mmol/L (10-20); BUN (Urea Nitrogen) 34 mg/dL (9.8-20.1); Calc. Creatinine Clearance 24 mL/min (70-130); Calcium 8.4 mg/dL (7.8-10.44); Carbon Dioxide 17 mmol/L (23-31); Chloride 113 mmol/L (98-107); Estimated GFR 30; Glucose 97 mg/dL (83-110); Potassium 4.2 mmol/L (3.5-5.1); Sodium 145 mmol/L (136-145)
[2022-08-28 05:12] LABS: White Blood Cell (WBC) Count 3.9 10x3/uL (4.8-10.8)
[2022-08-28 05:13] LABS: Band 8 % (5-11); Eosinophils 2 % (0-10); Hypochromia SLIGHT = 6-15 cells (100X) (0-5/hpf); Lymphocytes 60 % (21-51); MDiff Complete? YES; Metamyelocyte 4 % (0-0); Monocytes 22 % (0-10); Neutrophil 4 % (42-75); Nucleated RBC 19 % (0); Platelet Morphology Comment Appears Decreased
[2022-08-28 08:37] LABS: Albumin 2.1 g/dL (3.4-4.8)
[2022-08-28] MEDS: Pantoprazole 40 MG VIAL IVP SCH ×2 (08:41→21:43)
[2022-08-28] MEDS: Cefepime 2 GM in Sodium Chloride 0.9% 100 ML IVPB SCH (08:41)
[2022-08-28] MEDS ORDERED: Vancomycin Dose by Levels Sliding Scale (Wt <71) FS SCH (08:45)
[2022-08-28] MEDS ORDERED: VANCOMYCIN 1.25 GM/250 ML BAG 1.25 GM in Premix Bag 1 BAG IVPB SCH (09:00)
[2022-08-28 09:17] LABS: Vancomycin, Random 40.1 ug/mL (See Comment)
[2022-08-28] MEDS ORDERED: Albumin 25% 25 GM/100 ML BOT IVPB SCH (14:00)
[2022-08-28] MEDS ORDERED: Morphine 2 MG/ML VIAL ONE (15:18)
[2022-08-28] MEDS: Albumin 25% 25 GM/100 ML BOT IVPB SCH ×2 (18:31→22:39)
[2022-08-28 18:46] LABS: Anion Gap 18 mmol/L (10-20); BUN (Urea Nitrogen) 37 mg/dL (9.8-20.1); Calc. Creatinine Clearance 22 mL/min (70-130); Calcium 8.7 mg/dL (7.8-10.44); Carbon Dioxide 19 mmol/L (23-31); Chloride 113 mmol/L (98-107); Estimated GFR 27; Glucose 91 mg/dL (83-110); Magnesium 1.5 mg/dL (1.6-2.6); Sodium 146 mmol/L (136-145)
[2022-08-28] MEDS ORDERED: Sodium Bicarbonate 150 MEQ in Dextrose 5% in Water 1,000 ML IV SCH (21:00)
[2022-08-28] MEDS ORDERED: Magnesium 2 GM/50 ML(in water) 2 GM in Premix Bag 1 BAG IVPB SCH (21:00)
[2022-08-29 04:38] LABS: ALT (SGPT) 13 U/L (8-55); AST (SGOT) 43 U/L (5-34); Albumin 2.8 g/dL (3.4-4.8); Alkaline Phosphatase 50 U/L (40-110); Anion Gap 14 mmol/L (10-20); BUN (Urea Nitrogen) 40 mg/dL (9.8-20.1); Bilirubin, Total 1.4 mg/dL (0.2-1.2); Calc. Creatinine Clearance 21 mL/min (70-130); Calcium 8.8 mg/dL (7.8-10.44); Carbon Dioxide 26 mmol/L (23-31); Chloride 111 mmol/L (98-107); Estimated GFR 26; Globulin 2.8 g/dL (2.4-3.5); Glucose 149 mg/dL (83-110); Phosphorus 2.3 mg/dL (2.3-4.7); Potassium 3.6 mmol/L (3.5-5.1); Protein, Total 5.6 g/dL (5.8-8.1); Sodium 147 mmol/L (136-145)
[2022-08-29 04:44] LABS: Anisocytosis SLIGHT = 6-15 cells (100X) (0-5/hpf); Band 16 % (5-11); Eosinophils 1 % (0-10); Hemoglobin 7.7 g/dL (12.0-16.0); Lymphocytes 35 % (21-51); MDiff Complete? YES; Macrocytosis SLIGHT = 6-15 cells (100X) (0-5/hpf); Mean Corpuscular HGB CONC 32.4 g/dL (32.0-36.0); Mean Corpuscular Hemoglobin 31.9 pg (27.0-31.0); Mean Corpuscular Volume 98.3 fl (78.0-98.0); Metamyelocyte 3 % (0-0); Monocytes 19 % (0-10); Myelocyte 2 % (0-0); Neutrophil 24 % (42-75); Nucleated RBC 35 % (0); Ovalocytes SLIGHT = 2-5 cells (100X) (0-1/hpf); Platelet Count 66 10x3/uL (130-400); Platelet Morphology Comment Appears Decreased; RBC Distribution Width 18.9 % (11.5-14.5); White Blood Cell (WBC) Count 6.7 10x3/uL (4.8-10.8)
[2022-08-29] MEDS: Pantoprazole 40 MG VIAL IVP SCH (08:15)
[2022-08-29] MEDS ORDERED: Magnesium 2 GM/50 ML(in water) 2 GM in Premix Bag 1 BAG IVPB SCH (09:00)
[2022-08-29] MEDS ORDERED: Cefepime 1 GM in Sodium Chloride 0.9% 100 ML IVPB SCH (09:00)
[2022-08-29 10:00] LABS: Vancomycin, Random 36.1 ug/mL (See Comment)
[2022-08-29] MEDS ORDERED: Sodium Bicarbonate 150 MEQ in Dextrose 5% in Water 1,000 ML IV SCH (10:35)
[2022-08-29 11:36] LABS: Actual Bicarbonate (HCO3v) 28 mEq/L (22-28); Base Excess 4.5 mEq/L (-2.0 to +3.0); Calcium, Ionized (venous) 1.15 mmol/L (1.16-1.32); Chloride (VBG) 109 mmol/L (98-106); Hemoglobin (Hb) 9.1 g/dL (11.7-16.1); Potassium (VBG) 3.48 mmol/L (3.70-5.30); Sodium 144.6 mmol/L (133-146); pH (venous) 7.49 (7.32-7.43)
[2022-08-29] MEDS: Albumin 25% 25 GM/100 ML BOT IVPB SCH ×2 (13:47→17:20)
[2022-08-29] MEDS ORDERED: Acyclovir Sodium 650 MG in Sodium Chloride 0.9% 100 ML IVPB SCH (16:00)
[2022-08-29] MEDS ORDERED: Electrolyte Replacement Protocol 1 EACH FS SCH (17:15)
[2022-08-29] MEDS ORDERED: Atorvastatin Calcium 40 MG TAB PO SCH (21:00)
[2022-08-29] MEDS ORDERED: VANCOMYCIN 1.25 GM/250 ML BAG IVPB SCH (21:00)
[2022-08-29] MEDS ORDERED: Lorazepam 2 MG/ML VIAL SLOW IVP PRN (21:01)
[2022-08-29] MEDS ORDERED: Morphine 4 MG/ML VIAL SLOW IVP PRN (21:07)
[2022-08-29] MEDS ORDERED: Scopolamine 1.5 mg/72 hour Patch TD SCH (21:15)
[2022-08-29 22:52] VITALS: TEMP 98.9
[2022-08-30] MEDS: Albumin 25% 25 GM/100 ML BOT IVPB SCH (01:27)
[2022-08-30] MEDS ORDERED: FLU VACC QS2022-23(65YR UP)/PF 240 MCG/0.7 ML SYRINGE IM ONE (09:00)
== END 2022-08-30 01:30 | disposition expired | DRG 871 ==
LOC: ERS 22:42 → ERHOLD 08-27 00:39 → IMCU/EMU 08-27 19:09
PROVIDERS: ADMIT Internal Medicine; ATTEND Internal Medicine
PROC: 3E03329 Introduction of Other Anti-infective into Peripheral Vein, Percutaneous Approach (ICD-10-PCS; principal; 2022-08-27)
PROC: 30233N1 Transfusion of Nonautologous Red Blood Cells into Peripheral Vein, Percutaneous Approach (ICD-10-PCS; 2022-08-27)
DX: A41.9 Sepsis, unspecified organism (principal); R65.20 Severe sepsis without septic shock; Z20.822 Contact with and (suspected) exposure to COVID-19; Z66 Do not resuscitate; I63.9 Cerebral infarction, unspecified; J18.9 Pneumonia, unspecified organism; N17.9 Acute kidney failure, unspecified; D61.818 Other pancytopenia; N30.00 Acute cystitis without hematuria; M62.82 Rhabdomyolysis; I13.0 Hypertensive heart and chronic kidney disease with heart failure and stage 1 through stage 4 chronic kidney disease, or unspecified chronic kidney disease; K21.9 Gastro-esophageal reflux disease without esophagitis; H91.90 Unspecified hearing loss, unspecified ear; I27.20 Pulmonary hypertension, unspecified; R13.10 Dysphagia, unspecified; E77.8 Other disorders of glycoprotein metabolism; I50.9 Heart failure, unspecified; I48.91 Unspecified atrial fibrillation; E86.0 Dehydration; E86.9 Volume depletion, unspecified; E87.6 Hypokalemia; E83.42 Hypomagnesemia; E83.39 Other disorders of phosphorus metabolism; D63.1 Anemia in chronic kidney disease; N18.9 Chronic kidney disease, unspecified; K74.60 Unspecified cirrhosis of liver; E88.09 Other disorders of plasma-protein metabolism, not elsewhere classified; Z79.899 Other long term (current) drug therapy; Z85.3 Personal history of malignant neoplasm of breast; Z90.49 Acquired absence of other specified parts of digestive tract; Z98.890 Other specified postprocedural states; Z92.3 Personal history of irradiation; Z79.890 Hormone replacement therapy; Z90.710 Acquired absence of both cervix and uterus
CPT/HCPCS: 36415; 36430; 70450; 71045; 71250; 74176; 76705; 78227; 80048; 80053; 80202; 81001; 82040; 82550; 82553; 82570; 82728; 82805; 83540; 83550; 83605; 83735; 84100; 84156; 84300; 84540; 85025; 86140; 86850; 86900; 86901; 87040; 93005; 93306; 97139; A9537; C9113; J0133; J0692; J2270; J2272; J3370; J3475; J3480; J3490; J7030; J7050; J7070; P9016; P9047; U0002